=== PATIENT | female | born 2005 | race Caucasian/White ===

== ENCOUNTER → 2024-01-09 12:02 | Outpatient (REF) | payer OTHER, SELFPAY ==
[2024-01-09 16:12] LABS: % Basophils 0.6 % (0-2); % Eosinophils 2.8 % (0-6); % Immature Granulocytes 0.3 % (0-0.5); % Lymphocytes 33.7 % (20.5-51.1); % Monocytes 4.1 % (1.7-9.3); % Neutrophils 58.5 % (42.2-75.2); Absolute Basophils 0.1 10^3/uL (0-0.2); Absolute Eosinophils 0.3 10^3/uL (0-0.7); Absolute Monocytes 0.4 10^3/uL (0.1-0.6); Absolute Neutrophils 5.3 10^3/uL (1.4-6.5); Hematocrit 40.8 % (37.0-47.0); Hemoglobin 14.5 g/dL (12.0-16.0); Mean Corp Hgb Conc. 35.5 g/dL (33.0-37.0); Mean Corpuscular Volume 87.4 fL (81.0-99.0); Mean Platelet Volume 10.7 fL (7.4-10.4); Nucleated Red Blood Cells % 0 %; Platelet Count 325 10^3/uL (130-400); Red Blood Cell Count 4.67 10^6/uL (4.20-5.40); Red Cell Dist. Width 12.1 % (11.5-14.5)
[2024-01-09 16:20] LABS: ALT (SGPT) 20 U/L (0-35); AST (SGOT) 23 U/L (14-36); Albumin 4.8 g/dl (3.5-5.0); Alkaline Phosphatase 94 U/L (38-126); Blood Urea Nitrogen 10 mg/dl (7-17); Calcium 9.8 mg/dl (8.4-10.2); Carbon Dioxide 25 mmol/L (22-30); Chloride 103 mmol/L (98-107); Glucose 97 mg/dl (70-99); Potassium 4.4 mmol/L (3.5-5.1); Sodium 135 mmol/L (135-145); Total Bilirubin 0.6 mg/dl (0.2-1.3); Total Protein 7.9 g/dl (6.3-8.2); eGFR > 60.00
[2024-01-09 16:22] LABS: C-Reactive Protein < 5.00 mg/L (0.0-10.00)
[2024-01-09 16:31] LABS: Erythrocyte Sed Rate 10 mm/hour (0-20)
[2024-01-11 19:42] LABS: EBV-EA (D) Ab IgG <5.0 U/mL (0.0-10.9); EBV-VCA IgM Antibodies <10.0 U/mL (0.0-43.9)
== END ==
LOC: HWLAB 12:02
PROVIDERS: ATTENDING PHYSICIAN Pediatrics Pediatric Rheumatology; FAMILY PHYSICIAN Pediatrics
DX: M04.1 Periodic fever syndromes (principal); R59.9 Enlarged lymph nodes, unspecified
CPT/HCPCS: 36415; 80053; 85025; 85652; 86140; 86663; 86664; 86665